=== PATIENT | male | born 1945 | race Caucasian/White ===

== ENCOUNTER → 2021-12-13 10:50 | Outpatient (BNVA) | payer OTHER, SELFPAY | PROVIDERS: PCP Internal Medicine; Visit Provider Internal Medicine Pulmonary Disease | DX: D86.0 Sarcoidosis of lung (principal); R93.89 Abnormal findings on diagnostic imaging of other specified body structures | CPT/HCPCS: 99202 ==

== ENCOUNTER 2022-01-03 13:48 | Outpatient (REF) | payer OTHER, SELFPAY ==
--- NOTE | 2022-01-03 15:18 | PFT_ITS ---
INDICATION: Dyspnea. SPIROMETRY: FEV1 to FVC of 86% with an FEV1 of 2.89 L, which is 106% predicted and FVC of 3.35 L, which is 89% predicted. No significant response to bronchodilators noted. Maximum voluntary ventilation 96% predicted. LUNG VOLUMES: Total lung capacity 82% predicted and a diffusion capacity DLCO of 72% predicted. COMPARISON: None. INTERPRETATION: No obstructive nor restrictive ventilatory defects identified. No significant response to bronchodilators noted. Normal maximum voluntary ventilation. Total lung capacity is low normal, and the patient does have a mild diffusion impairment. Clinical correlation warranted. Yovanny Fallon MD MR/MODL / [id number]
== END 2022-01-03 13:49 | disposition home or self-care (01) ==
LOC: HO.RESP 13:48
PROVIDERS: PCP Nurse Practitioner Family; Visit Provider Internal Medicine Pulmonary Disease
DX: D86.0 Sarcoidosis of lung (principal)
CPT/HCPCS: 94060; 94727; 94729

== ENCOUNTER → 2022-01-24 13:41 | Outpatient (BNVA) | payer OTHER, SELFPAY | PROVIDERS: PCP Nurse Practitioner Family; Visit Provider Internal Medicine Pulmonary Disease | DX: D86.0 Sarcoidosis of lung (principal); R93.89 Abnormal findings on diagnostic imaging of other specified body structures | CPT/HCPCS: 99212 ==

== ENCOUNTER → 2022-02-06 13:44 | Outpatient (BNVA) | payer OTHER, SELFPAY | PROVIDERS: PCP Nurse Practitioner Family; Visit Provider Internal Medicine | DX: M47.816 Spondylosis without myelopathy or radiculopathy, lumbar region (principal) | CPT/HCPCS: 99202 ==

== ENCOUNTER → 2022-03-02 13:44 | Outpatient (BNVA) | payer OTHER, SELFPAY | PROVIDERS: PCP Nurse Practitioner Family; Visit Provider Internal Medicine Pulmonary Disease | DX: D86.0 Sarcoidosis of lung (principal); R93.89 Abnormal findings on diagnostic imaging of other specified body structures | CPT/HCPCS: 99212 ==

== ENCOUNTER 2022-03-29 10:49 | Day surgery (SDC) | payer OTHER, SELFPAY ==
[2022-03-23 11:59] VITALS: BMI 23.9
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
--- NOTE | ~2022-03-29 | FL_ITS ---
EXAMINATION: XR FLUOROSCOPY WITH IMAGES CLINICAL INFORMATION: Back pain COMPARISON: CT abdomen 01/09/2019. TECHNIQUE: Fluoroscopy performed by Dr. Omar Stoll. Fluoroscopy time: 36 seconds Cumulative dose: 13.42 mGy Images: 2 FINDINGS: There are electrode needles overlying the outer left L3, L4, and L5 neural foramen. There are degenerative changes lumbar spine. FL/FL guidance in OR IMPRESSION: Fluoroscopy for pain management procedures.
[2022-03-29 11:30] VITALS: BP 137/84; PULSE 78; RESP 16; TEMP 36.3; O2SAT 97
[2022-03-29] MEDS: Lactated Ringers 1,000 ML 100 ML IVCONT (11:39)
--- NOTE | 2022-03-29 12:31 | MHC.SHP ---
Pre-Procedural Eval Section A Date of Service: 03/29/22 The patient is an INPATIENT: No The History & Physical has been completed within 30 days and I have reviewed it.: No Section B Chief Complaint: lumbar spondylosis Relevant Family History (Specify if Yes): No Relevant Social History: None Present Medications: see Short Stay Collaborative assessment Medical History: Significant History Allergies: Allergies Allergy/AdvReac Type Severity Reaction Status Date / Time amlodipine Allergy Unknown Headache Verified 03/23/22 11:58 buprenorphine [From Belbuca] Allergy Unknown Rash Verified 03/23/22 11:58 cyclobenzaprine Allergy Unknown Unknown Verified 03/23/22 11:58 gabapentin Allergy Unknown Dizziness Verified 03/23/22 11:58 mirtazapine Allergy Unknown Unknown Verified 03/23/22 11:58 trazodone Allergy Unknown Unknown Verified 03/23/22 11:58 lisinopril AdvReac Cough Verified 03/23/22 11:58 Review of Systems Sugical H&P ROS: Negative: Constitution, Cardiovascular and Respiratory and Yes, Specify: Musculoskeletal and Integumentary (forearm bruising) Exam Surgical H&P Exam: Normal: HEENT, Normal: Heart and Normal: Lungs Plan Diagnosis/Plan: Unchanged I have reviewed the history and physical and performed a pertinent physical examination on my patient. No changes have occurred unless specified.
--- NOTE | 2022-03-29 12:32 | P.BOP_ITS ---
Brief Operative Note Date of Service: 03/29/22 Pre-op diagnosis: Lumbar spondylosis Post-op diagnosis: same Procedure: Lumbar 3/4/5 medial branch radiofrequency ablation, left Surgeon: Omar Stoll MD Anesthesia: MAC Was an Sales Audit Clerk used for this Procedure?: No Estimated blood loss (mL): 2 Pathology: none sent Condition: stable Disposition: PACU
--- NOTE | 2022-03-29 12:33 | W.PM.OPN ---
Operative Note Operative Note Date of Service: 03/29/22 Narrative: Radiofrequency lesioning medial branch nerves, Left L3, L4 medial branches and L5 dorsal ramus (L4/5 and L5/S1) (2 levels, 3 nerves) After obtaining written consent, pre-procedure blood pressure and heart rate were stable and recorded in the nursing record. Standard monitors were applied. The patient was placed in the prone position and sedated by the collision technician. The lumbar area was prepped with chloraprep and draped in sterile fashion. The skin over the target for each medial branch nerve was anesthetized with 0.5% lidocaine. An 18 gauge radiofrequency cannula was advanced to each target site under fluoroscopic guidance. No paresthesias were elicited with needle placement and aspiration was negative for heme and CSF. Impedences were verified under 600 ohms. Sensory testing (50 Hz) and then motor testing (2 Hz) confirmed needle placement at each site within the appropriate voltage thresholds. Each site was injected with 0.5 ml 2% preservative-free lidocaine. Radiofrequency lesioning was performed for 90 seconds at 80 deg Celcius. Each site was then injected with 0.5ml 2% lidocaine. The needle was removed, skin cleansed and a sterile bandage was applied. The patient tolerated the procedure well and no complications were encountered. Following the procedure the patient was woken up and brought to the PACU, where his vital signs were stable. The patient was discharged home in good condition with post-procedural instructions. Time Out: Immediately prior to the procedure, the following was verbally confirmed that there is a signed consent form and that the correct patient, planned procedure, site and side are consistent with documentation and that necessary equipment and/or blood products are available prior to the start of the case. Complications: none EBL: <5 cc
[2022-03-29 13:30] VITALS: BP 96/53; PULSE 66; RESP 16; TEMP 36.2; O2SAT 94
[2022-03-29 13:45] VITALS: BP 121/77; PULSE 61; RESP 16; TEMP 36.1; O2SAT 98
[2022-03-29 14:00] VITALS: BP 124/58; PULSE 63; RESP 18; TEMP 36.1; O2SAT 98
== END 2022-03-29 14:40 | disposition home or self-care (01) ==
PROVIDERS: PCP Family Medicine; Visit Provider Internal Medicine
PROC: (CPT 64635; principal; 2022-03-29 12:30)
DX: M47.816 Spondylosis without myelopathy or radiculopathy, lumbar region (principal); G89.29 Other chronic pain; M54.50 Low back pain, unspecified; Z79.899 Other long term (current) drug therapy; Z88.0 Allergy status to penicillin; Z88.8 Allergy status to other drugs, medicaments and biological substances
CPT/HCPCS: 64635; 64636; J2250; J3010

== ENCOUNTER → 2022-05-01 08:26 | Outpatient (BNVA) | payer OTHER, SELFPAY | PROVIDERS: PCP Family Medicine; Visit Provider Internal Medicine | DX: M48.062 Spinal stenosis, lumbar region with neurogenic claudication (principal); M47.816 Spondylosis without myelopathy or radiculopathy, lumbar region | CPT/HCPCS: 99212 ==

== ENCOUNTER → 2022-05-22 08:08 | Outpatient (BNVA) | payer OTHER, SELFPAY | PROVIDERS: PCP Family Medicine; Visit Provider Internal Medicine | DX: M48.062 Spinal stenosis, lumbar region with neurogenic claudication (principal); M62.81 Muscle weakness (generalized); Z79.899 Other long term (current) drug therapy | CPT/HCPCS: 99212 ==

== ENCOUNTER → 2023-01-31 13:44 | Outpatient (BNVA) | payer OTHER, SELFPAY | PROVIDERS: PCP Internal Medicine Endocrinology, Diabetes & Metabolism; Visit Provider Neurological Surgery | DX: Z98.1 Arthrodesis status (principal) | CPT/HCPCS: 99212 ==

== ENCOUNTER 2023-03-16 08:49 | Emergency (ER) | payer OTHER, SELFPAY ==
--- NOTE | ~2023-03-16 | CT_ITS ---
EXAMINATION: CT ABDOMEN AND PELVIS WITH CONTRAST CLINICAL INFORMATION: Left flank/back pain COMPARISON: Previous CT of the abdomen December 2018 TECHNIQUE: Multidetector volumetric images were obtained from the superior aspect of the liver through the pubic symphysis following administration 85 mL of Omnipaque 350 intravenous contrast. Sagittal and coronal reformatted images were obtained on the technologist's workstation. Oral contrast: Yes This CT examination was performed using dose optimization techniques as appropriate, variously including the following: *Automated exposure control *Adjustment of mA and/or kV according to patient size (this includes techniques or standardized protocols for targeted exams where dose is matched to indication/reason for exam; i.e. extremities or head) *Use of iterative reconstruction technique DLP: 497 mGy-cm FINDINGS: LUNG BASES: The visualized lung bases are unremarkable. LIVER, GALLBLADDER, AND BILIARY TREE: The liver is slightly irregular in contour with hypertrophy of the left lobe and caudate lobe suggestive of mild cirrhotic changes. The liver is slightly low in attenuation suggestive of mild fatty infiltration. There is irregular in shape area of decreased attenuation in the inferior posterior segment of the right lobe is stable axial image 28 series 3. This is not appreciated on previous noncontrast-enhanced CT scan. The gallbladder is normal. There is no intra or extrahepatic biliary duct dilatation. No ascites. PANCREAS: There is fatty infiltration of the head of the pancreas. There is a small calcification in the head of the pancreas. The SPLEEN: Unremarkable. ADRENAL GLANDS: Unremarkable. KIDNEYS AND URETERS: Bilateral small renal cysts. No imaging follow-up recommended. The kidneys are otherwise normal. BLADDER: The prostate gland is slightly enlarged and protrudes into the base of the bladder. The bladder is otherwise normal. GASTROINTESTINAL TRACT: Question mild wall thickening of the transverse left and sigmoid colon versus changes due to underdistention. There may be prominence of the vasa recta. Appearance is questionable for mild colitis. There is mild diverticulosis. No evidence of diverticulitis. Small and large bowel is otherwise normal. The appendix is normal. ABDOMINAL WALL: No significant hernia is appreciated. LYMPH NODES: Normal. VASCULAR: Unremarkable. PELVIC VISCERA: The prostate gland is slightly enlarged measuring 4.3 x 5 cm and protrudes into the base of the bladder. OSSEOUS STRUCTURES: Postsurgical changes to the lumbar spine with posterior fusion hardware and disc prostheses L2-L5. Multilevel degenerative changes. Degenerative changes at the hip joints. Intramedullary hilaria seen in the visualized left proximal femur. CT/CT abdomen pelvis w IV con IMPRESSION: Question mild colitis. Diverticulosis. No evidence of diverticulitis. Bilateral renal cysts. No imaging follow-up recommended. Slightly enlarged prostate gland that protrudes into the base of the bladder. Cirrhotic changes of the liver and mild fatty infiltration. Question liver lesion in the inferior posterior segment of the right lobe of the liver. Follow-up liver MRI recommended. Fleischner guidelines were followed.
[2023-03-16 08:58] VITALS: BP 132/85; PULSE 73; RESP 18; TEMP 36.9; O2SAT 98; BMI 25.7
[2023-03-16 09:17] VITALS: BP 147/75; PULSE 69; RESP 16; TEMP 36.6; O2SAT 97
[2023-03-16 10:05] LABS: MANUAL DIFF FLAG NO
[2023-03-16 10:06] VITALS: BP 124/70; PULSE 64; RESP 17; O2SAT 95
[2023-03-16 10:07] LABS: Basophils Percent Auto 0.6 % (0-2); Eosinophils Absolute Auto 0.2 X10*3/uL (0.0-0.4); Eosinophils Percent Auto 3.2 % (0-4); Hematocrit 43.4 % (42.0-52.0); Hemoglobin 14.4 g/dl (14.0-18.0); Imm Gran Abs Auto 0.02 X10*3/uL (0.00-0.03); Imm Gran Pct Auto 0.4 % (0.0-0.4); Lymphocytes Absolute Auto 1.2 X10*3/uL (1.2-4.9); Mean Corpuscular HGB Conc 33.2 g/dl (31.0-36.0); Mean Corpuscular Hemoglobin 30.9 pg (27.0-33.0); Mean Corpuscular Volume 93.1 fL (80.0-98.0); Mean Platelet Volume 9.4 fL (9.4-12.4); Monocytes Absolute Auto 0.5 X10*3/uL (0.1-1.2); Monocytes Percent Auto 9.7 % (2-11); Neutrophils Absolute Auto 3.1 x10*3/uL (2.0-8.3); Neutrophils Percent Auto 62.1 % (45-73); Platelet Count 126 X10*3/uL (160-400); Red Blood Count 4.66 X10*6/uL (4.60-5.80); Red Cell Distribution Width 13.9 % (11.0-16.0)
[2023-03-16 10:18] LABS: Lactic Acid 0.8 mmol/L (0.5-2.0)
[2023-03-16 10:24] LABS: Alanine Aminotransferase 15 U/L (0-40); Albumin Level 3.9 g/dL (3.5-5.0); Alkaline Phosphatase 82 U/L (39-117); Anion Gap 10 (12-20); Aspartate Amino Transferase 24 U/L (5-37); Bilirubin Total 0.7 mg/dL (0.0-1.0); Blood Urea Nitrogen 13 mg/dL (9-16); C Reactive Protein 0.17 mg/dL (< or = 0.50); Calcium 9.4 mg/dL (8.4-10.2); Carbon Dioxide 27 mmol/L (22-29); Chloride 107 mmol/L (96-108); Creatinine Clr Calc Pharmacy 64.2; Estimated Glomerular Filt Rate > 60; Glucose Random 95 mg/dL (60-115); Magnesium 1.9 mg/dL (1.6-2.6); Potassium 3.9 mmol/L (3.3-5.1); Sodium 140 mmol/L (135-145); Total Protein 7.1 g/dL (6.5-8.0)
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
[2023-03-16] MEDS: iohexoL 350 MG/ML 100 ML INFUS..BTL IV (10:40)
[2023-03-16 10:45] LABS: Erythrocyte Sedimentation Rate 6 MM/HR (0-15)
[2023-03-16 11:16] LABS: Appearance Urine Clear; Color Urine Yellow; Glucose Urine UA Negative (Negative); Leukocyte Esterase Urine Negative (Negative); Nitrite Urine Negative (Negative); PH 5.5 (5.0-9.0); Specific Gravity - Urine >= 1.030 (1.005-1.025); Urine Blood Negative (Negative); Urine Ketones Negative (Negative); Urine Protein Negative (Neg-Trace)
--- NOTE | 2023-03-16 11:20 | PC.NURSE ---
pt a&o x4, calm and cooperative. reports lower back pain at the incision site of where he had a spinal fusion in 09/21. pt refused tylenol stating that his doctor advised he avoid it due to having a bad liver . pt sts he can tolerate his pain now and will take his prescription oxycodone when he gets home. pt resting quietly on stretcher in no apparent distress. rr even unlabored. wctm
== END 2023-03-16 12:25 | disposition home or self-care (01) ==
PROVIDERS: Physician Assistant; Emergency Provider Emergency Medicine; PCP Nurse Practitioner Family
DX: L03.312 Cellulitis of back [any part except buttock and flank] (principal); R10.9 Unspecified abdominal pain; N40.0 Benign prostatic hyperplasia without lower urinary tract symptoms; M54.50 Low back pain, unspecified; K76.9 Liver disease, unspecified; Z79.899 Other long term (current) drug therapy
CPT/HCPCS: 36415; 74177; 80053; 81003; 82550; 83605; 83735; 85025; 85652; 86140; 87040; 99284; Q9967

== ENCOUNTER 2023-04-12 12:56 | Outpatient (AMB) | payer OTHER, SELFPAY ==
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
== END 2023-04-12 13:38 | disposition home or self-care (01) ==
PROVIDERS: PCP Nurse Practitioner Family; Visit Provider Urology
DX: N40.0 Benign prostatic hyperplasia without lower urinary tract symptoms (principal)
CPT/HCPCS: 99203

== ENCOUNTER → 2023-04-12 12:56 | Outpatient (BNVA) | payer OTHER, SELFPAY | PROVIDERS: PCP Nurse Practitioner Family; Visit Provider Urology | DX: N40.0 Benign prostatic hyperplasia without lower urinary tract symptoms (principal) | CPT/HCPCS: 51798; 99202 ==

== ENCOUNTER 2023-04-18 08:22 | Outpatient (REF) | payer OTHER, SELFPAY ==
[2023-04-18 10:20] LABS: Prostate Specific Antigen 2.53 ng/mL (<0.05-4.0)
== END 2023-04-18 08:23 | disposition home or self-care (01) ==
LOC: HO.10HDL 08:22
PROVIDERS: Visit Provider Urology
DX: N40.1 Benign prostatic hyperplasia with lower urinary tract symptoms (principal); Z12.5 Encounter for screening for malignant neoplasm of prostate
CPT/HCPCS: 36415; 84153

== ENCOUNTER 2023-04-25 13:38 | Outpatient (REF) | payer OTHER, SELFPAY ==
--- NOTE | ~2023-04-25 | MR_ITS ---
EXAMINATION: MR ABDOMEN WITHOUT AND WITH CONTRAST CLINICAL INFORMATION: Liver lesion COMPARISON: CT abdomen pelvis 03/16/2023 TECHNIQUE: MRI of the abdomen before and after the IV administration of 7 mL of Gadavist was obtained using routine sequences. FINDINGS: LUNG BASES: The visualized lung bases are unremarkable. KIDNEYS AND URETERS: Bosniak 1 benign-appearing bilateral renal cysts, no imaging follow-up recommended. GALLBLADDER: Unremarkable. LIVER AND BILIARY TREE: Macrolobulated contour of the liver which be seen in the setting of cirrhosis. Wedge-shaped region of hypoenhancement in hepatic segment 6 peripherally appreciated on only one of the postcontrast sequences without definite T1 correlate given the transient nature of the finding favored to reflect a geographic region of altered perfusion. PANCREAS: 3 mm cyst in the pancreatic tail, 4:15. No solid components or pancreatic duct dilatation. SPLEEN: Unremarkable ADRENAL GLANDS: Unremarkable GASTROINTESTINAL TRACT: Colonic diverticulosis without evidence of diverticulitis. Small hiatal hernia. LYMPH NODES: No lymphadenopathy. VASCULAR: Unremarkable ABDOMINAL WALL: Unremarkable. OSSEOUS STRUCTURES: Levoconvex curvature of the lumbar spine. Status post L2-L5 posterior spinal fusion. MR/MR abdomen wo/w con IMPRESSION: 1. Wedge-shaped region of hypoenhancement in hepatic segment 6 peripherally appreciated on only one of the postcontrast sequences without definite T1 correlate given the transient nature of the finding favored to reflect a geographic region of altered perfusion, however given background of cirrhosis recommend 3 to six-month follow-up MR to ensure stability. 2. Macrolobulated contour of the liver which be seen in the setting of cirrhosis. 3. A 3 mm cyst in the pancreatic tail possibly a small side branch IPMN. Recommend two-year follow-up contrast enhanced MR/MRCP.
== END 2023-04-25 13:39 | disposition home or self-care (01) ==
LOC: HO.MRI 13:38
PROVIDERS: PCP Nurse Practitioner Family; Visit Provider Nurse Practitioner Family
DX: R93.2 Abnormal findings on diagnostic imaging of liver and biliary tract (principal)
CPT/HCPCS: 74183; A9585

== ENCOUNTER 2023-05-02 11:02 | Outpatient (AMB) | payer OTHER, SELFPAY ==
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
[2023-05-02 11:26] VITALS: BP 139/72; PULSE 77; BMI 26.9
== END 2023-05-02 12:10 | disposition home or self-care (01) ==
PROVIDERS: PCP Nurse Practitioner Family; Visit Provider Nurse Practitioner Family
DX: Z86.19 Personal history of other infectious and parasitic diseases (principal); K76.0 Fatty (change of) liver, not elsewhere classified
CPT/HCPCS: 99204

== ENCOUNTER → 2023-05-02 11:02 | Outpatient (BNVA) | payer OTHER, SELFPAY | PROVIDERS: PCP Nurse Practitioner Family; Visit Provider Nurse Practitioner Family | DX: K76.0 Fatty (change of) liver, not elsewhere classified (principal); Z86.19 Personal history of other infectious and parasitic diseases | CPT/HCPCS: 99202 ==

== ENCOUNTER 2023-05-03 08:00 | Outpatient (REF) | payer OTHER, SELFPAY ==
[2023-05-03 09:27] LABS: Prothrombin Time 11.6 SEC (11.1-13.3)
[2023-05-03 09:41] LABS: C Reactive Protein < 0.04 mg/dL (< or = 0.50)
[2023-05-03 09:59] LABS: Ferritin 88 ng/mL (20-250)
[2023-05-03 10:32] LABS: HBS Num1 12.87 mIU/mL (0-7.99); HBc Num1 0.12 S/CO (0.00-0.79); HBsAGNum1 0.32 S/CO (0.00-0.99); HIV AB/AG Nonreactive (Nonreactive); HIV Num 1 0.05 S/CO (0.00-0.99); Hepatitis B Core Antibody Nonreactive (Nonreactive); Hepatitis B Surface Antigen Negative (Negative); ~HepC Num1 13.89 S/CO (0.00-0.79); ~Hepatitis A Antibody IgM Nonreactive (Nonreactive); ~Hepatitis B Surface Antibody REACTIVE (Nonreactive); ~Hepatitis C Antibody Reactive (Nonreactive)
[2023-05-07 12:49] LABS: Alpha Fetoprotein 4.7 ng/mL (<6.1)
[2023-05-07 16:19] LABS: Ceruloplasmin 23 mg/dL (18-36)
[2023-05-07 23:09] LABS: Smooth Muscle Antibody <20 U (<20)
[2023-05-08 17:53] LABS: HCV Log PCR <1.18 NOT DETECTED Log IU/mL (NOT DETECTED); HepC Viral Load <15 NOT DETECTED IU/mL (NOT DETECTED)
[2023-05-09 16:03] LABS: Mitochondrial Antibodies NEGATIVE (NEGATIVE)
[2023-05-10 15:29] LABS: FIB-ALT 16 U/L (9-46); FIB-Alpha-2-Macroglobulin 424 mg/dL (106-279); FIB-Apolipoprotein A1 167 mg/dL (94-176); FIB-GGT 13 U/L (3-70); FIB-Haptoglobin 85 mg/dL (43-212); FIB-Total Bilirubin 0.7 mg/dL (0.2-1.2); Liver Fibrosis Score 0.69; Liver Fibrosis Stage F3; Nec Inflam Act Grade A0
[2023-05-10 23:04] LABS: Liver Kidney Microsomal Ab <=20.0 U (<=20.0)
== END 2023-05-03 08:01 | disposition home or self-care (01) ==
LOC: HO.LAB 08:00
PROVIDERS: PCP Internal Medicine Endocrinology, Diabetes & Metabolism; Visit Provider Nurse Practitioner Family
DX: Z11.4 Encounter for screening for human immunodeficiency virus [HIV] (principal); R79.89 Other specified abnormal findings of blood chemistry; Z86.19 Personal history of other infectious and parasitic diseases; K76.0 Fatty (change of) liver, not elsewhere classified; R74.01 Elevation of levels of liver transaminase levels
CPT/HCPCS: 36415; 81596; 82105; 82390; 82728; 85610; 86015; 86140; 86255; 86256; 86376; 86704; 86706; 86709; 86803; 87340; 87389; 87522

== ENCOUNTER 2023-05-08 09:52 | Outpatient (REF) | payer OTHER, SELFPAY ==
--- NOTE | ~2023-05-08 | MR_ITS ---
EXAMINATION: MR LUMBAR SPINE WITHOUT AND WITH CONTRAST CLINICAL INFORMATION: Neurogenic claudication. Left lower extremity pain with standing and walking. COMPARISON: CT abdomen and pelvis 03/16/2023. TECHNIQUE: Multiplanar MR imaging of the lumbar spine was performed without and with contrast. A total of 7 mL Gadavist was utilized for this examination. FINDINGS: There is transitional spinal anatomy. For the purposes of this dictation a normal convention of 5 lumbar vertebral be utilized with the T12 ribs being hypoplastic or absent. There are chronic postoperative changes of a posterior spinal fusion. Transpedicular hardware extends from L2 to L5. Alignment is normal. Vertebral heights are preserved. There is loss of intervertebral disc height and T2 signal intensity at multiple levels related to disc degeneration. The tip of the conus medullaris is located at T12. No mass effect on the conus. Visualized distal cord signal intensity is normal. At T12-L1 there is a slightly bulging disc. No canal stenosis. No mass effect on the traversing or foraminal nerve roots. At L1-L2 there is a diffusely bulging disc. Bilateral facet degenerative change. Moderate canal stenosis. No mass effect on the traversing or foraminal nerve roots. At L2-L3 there is no canal or neuroforaminal compromise. At L3-L4 there is no canal stenosis. Mild to moderate residual mass effect on the right L3 foraminal nerve root. At L4-L5 there is moderate residual canal stenosis. No foraminal nerve root compression. At L5-S1 there is a central to the right subarticular protrusion superimposed upon a bulging disc. Bilateral facet degenerative change. No canal stenosis. Subarticular zone narrowing causes displacement and likely compression of both traversing S1 nerve roots. Moderate compression of the right L5 foraminal nerve root. Limited visualization of the retroperitoneal anatomy reveals a well marginated benign-appearing cystic lesion at the lower pole left kidney. Psoas and paraspinal muscle groups are symmetric. MR/MR lumbar spine wo/w con IMPRESSION: There is transitional spinal anatomy. For the purposes of this dictation a normal convention of 5 lumbar vertebral be utilized with the T12 ribs being hypoplastic or absent. There are chronic postoperative changes of a spinal fusion with transpedicular hardware extending from L2 to L5. There is junctional spondylosis above the fusion with moderate canal stenosis at L1-L2. There is also moderate residual canal stenosis at the level of L4-L5. A central to the right subarticular protrusion superimposed upon a bulging disc at L5-S1 causes displacement and likely compression of both traversing S1 nerve roots. There is also moderate compression of the right L5 foraminal nerve root at this level.
== END 2023-05-08 09:53 | disposition home or self-care (01) ==
LOC: HO.MRI 09:52
PROVIDERS: PCP Nurse Practitioner Family; Visit Provider Physician Assistant
DX: M48.062 Spinal stenosis, lumbar region with neurogenic claudication (principal)
CPT/HCPCS: 72158; A9585

== ENCOUNTER 2023-05-16 14:23 | Outpatient (AMB) | payer OTHER, SELFPAY ==
--- NOTE | 2023-05-16 15:11 | A.SPINEOV_ITS ---
Intake Intake Visit Reasons: MRI follow up Intake Note: Mr. Silva is here today for MRI results. Billing And Quality Technician Required: No Allergies amlodipine Allergy (Unknown, Verified 05/02/23 11:25) Headache buprenorphine [From Belbuca] Allergy (Unknown, Verified 05/02/23 11:25) Rash cyclobenzaprine Allergy (Unknown, Verified 05/02/23 11:25) Unknown gabapentin Allergy (Unknown, Verified 05/02/23 11:25) Dizziness mirtazapine Allergy (Unknown, Verified 05/02/23 11:25) Unknown trazodone Allergy (Unknown, Verified 05/02/23 11:25) Unknown lisinopril Adverse Reaction (Verified 05/02/23 11:25) Cough Assessment & Plan Assessment & Plan (1) Status post lumbar and lumbosacral fusion by anterior technique: Code(s): Z98.1 - Arthrodesis status Plan Dear colleague, On 05/16/2023 I saw for final follow-up the patient Cyrus Silva. He is status post minimally invasive correction over lumbar degenerative scoliosis L2- L5. He Is doing quite well. His main complaint today is a radiating pain to his posterior thigh when he lays down. He tells me that he was offered a left knee replacement and L1 during that his disturbed gait is a part of the problem causing the now right-sided posterior thigh pain. The left side is much better than his previous visit. I reviewed a new MRI of the lumbar spine that shows a moderate stenosis L4-5 but overall good alignment of the spine and satisfactory position of the instrumentation. I told patient that no additional surgery is required. He will visit me on a p.r.n. basis. Thank you for the referral. Danish Tracy MD, PhD Spine Fellowship Trained Neurosurgeon Director, [facility] Coding Level of Care Code Est Pt Level 3 (05557) Diagnoses Status post lumbar and lumbosacral fusion by anterior technique Z98.1
== END 2023-05-16 15:23 | disposition home or self-care (01) ==
PROVIDERS: PCP Internal Medicine Endocrinology, Diabetes & Metabolism; Visit Provider Neurological Surgery
DX: Z98.1 Arthrodesis status (principal)
CPT/HCPCS: 99213

== ENCOUNTER → 2023-05-16 14:23 | Outpatient (BNVA) | payer OTHER, SELFPAY | PROVIDERS: Visit Provider Neurological Surgery | DX: Z98.1 Arthrodesis status (principal) | CPT/HCPCS: 99212 ==

== ENCOUNTER 2023-06-29 10:10 | Outpatient (AMB) | payer OTHER, SELFPAY ==
[2023-06-29 10:11] VITALS: BP 140/90; PULSE 107; O2SAT 98; BMI 26.0
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
== END 2023-06-29 10:24 | disposition home or self-care (01) ==
PROVIDERS: PCP Internal Medicine Endocrinology, Diabetes & Metabolism; Visit Provider Internal Medicine Pulmonary Disease
DX: D86.0 Sarcoidosis of lung (principal); R93.89 Abnormal findings on diagnostic imaging of other specified body structures
CPT/HCPCS: 99214

== ENCOUNTER → 2023-06-29 10:10 | Outpatient (BNVA) | payer OTHER, SELFPAY | PROVIDERS: PCP Internal Medicine Endocrinology, Diabetes & Metabolism; Visit Provider Internal Medicine Pulmonary Disease | DX: D86.0 Sarcoidosis of lung (principal); R93.89 Abnormal findings on diagnostic imaging of other specified body structures | CPT/HCPCS: 99212 ==

== ENCOUNTER 2023-07-02 08:45 | Outpatient (REF) | payer OTHER, SELFPAY ==
[2023-07-02 11:32] LABS: Prostate Specific Antigen 3.24 ng/mL (<0.05-4.0)
== END 2023-07-02 08:46 | disposition home or self-care (01) ==
LOC: HO.10HDL 08:45
PROVIDERS: Visit Provider Urology
DX: N40.1 Benign prostatic hyperplasia with lower urinary tract symptoms (principal); Z12.5 Encounter for screening for malignant neoplasm of prostate
CPT/HCPCS: 36415; 84153

== ENCOUNTER 2023-07-10 07:55 | Outpatient (AMB) | payer OTHER, SELFPAY ==
[2023-07-10 08:15] VITALS: BP 135/77; PULSE 62; BMI 22.8
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
== END 2023-07-10 09:15 | disposition home or self-care (01) ==
PROVIDERS: PCP Nurse Practitioner Family; Visit Provider Nurse Practitioner Family
DX: Z86.19 Personal history of other infectious and parasitic diseases (principal); K76.0 Fatty (change of) liver, not elsewhere classified
CPT/HCPCS: 99213

== ENCOUNTER → 2023-07-10 07:55 | Outpatient (BNVA) | payer OTHER, SELFPAY | PROVIDERS: PCP Nurse Practitioner Family; Visit Provider Nurse Practitioner Family | DX: K76.0 Fatty (change of) liver, not elsewhere classified (principal); Z86.19 Personal history of other infectious and parasitic diseases | CPT/HCPCS: 99212 ==

== ENCOUNTER 2023-07-12 10:03 | Outpatient (AMB) | payer OTHER, SELFPAY ==
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
== END 2023-07-12 11:27 | disposition home or self-care (01) ==
PROVIDERS: PCP Nurse Practitioner Family; Visit Provider Urology
DX: R35.1 Nocturia (principal); N40.0 Benign prostatic hyperplasia without lower urinary tract symptoms
CPT/HCPCS: 99213

== ENCOUNTER → 2023-07-12 10:03 | Outpatient (BNVA) | payer OTHER, SELFPAY | PROVIDERS: PCP Nurse Practitioner Family; Visit Provider Urology | DX: N40.1 Benign prostatic hyperplasia with lower urinary tract symptoms (principal); R35.1 Nocturia | CPT/HCPCS: 51798; 99212 ==

== ENCOUNTER 2024-04-30 14:20 | Outpatient (REF) | payer OTHER, SELFPAY ==
--- NOTE | ~2024-04-30 | XR_ITS ---
EXAMINATION: XR LUMBOSACRAL SPINE WITH OBLIQUES CLINICAL INFORMATION: Arthrodesis status. COMPARISON: MR lumbar spine 05/08/2023. TECHNIQUE: 4 views of the lumbar spine inclusive of flexion and extension views. FINDINGS: Transitional spine anatomy was characterized on MR lumbar spine of 05/08/2023. As per report for MRI lumbar spine of 05/08/2023 recommendation, for the purposes of this report, a normal convention of 5 lumbar vertebrae will again be utilized with the T12 ribs being hypoplastic or absent. Redemonstration of spinal fusion with transpedicular hardware spanning L2-L5. Disc spacers at L2-L3, L3-L4, and L4-L5. Levoscoliosis of the thoracolumbar spine. Straightening of the normal lumbar lordosis. Advanced degenerative changes with spondylosis and loss of disc space height, most notable at L2-L3 and L5-S1. Alignment maintained on flexion and extension views. XR/XR lumbar spine 4V min IMPRESSION: 1. Redemonstration of spinal fusion with transpedicular hardware spanning L2-L5. 2. Advanced degenerative changes with spondylosis and loss of disc space height, most notable at L2-L3 and L5-S1.
== END 2024-04-30 14:21 | disposition home or self-care (01) ==
LOC: HO.HOSX 14:20
PROVIDERS: PCP Nurse Practitioner Family; Visit Provider Neurological Surgery
DX: M54.50 Low back pain, unspecified (principal); M48.07 Spinal stenosis, lumbosacral region; Z98.1 Arthrodesis status
CPT/HCPCS: 72110; 99212

== ENCOUNTER 2024-04-30 14:20 | Outpatient (AMB) | payer OTHER, SELFPAY ==
--- NOTE | 2024-04-30 14:24 | A.SPINEOV_ITS ---
Intake Visit Reasons: ongoing low back pain Intake Note: Mr. Silva is here today c/o ongoing low back pain. Healthcare Sales Representative Required: No Allergies amlodipine Allergy (Unknown, Verified 07/10/23 08:19) Headache buprenorphine [From Belbuca] Allergy (Unknown, Verified 07/10/23 08:19) Rash cyclobenzaprine Allergy (Unknown, Verified 07/10/23 08:19) Unknown gabapentin Allergy (Unknown, Verified 07/10/23 08:19) Dizziness mirtazapine Allergy (Unknown, Verified 07/10/23 08:19) Unknown trazodone Allergy (Unknown, Verified 07/10/23 08:19) Unknown lisinopril Adverse Reaction (Verified 07/10/23 08:19) Cough Assessment & Plan Assessment & Plan (1) Status post lumbar and lumbosacral fusion by anterior technique: Code(s): Z98.1 - Arthrodesis status Category: Surgical (2) 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 He is status post minimally invasive L2-L5 fusion. He responded well to the surgery. He returns to my clinic with progressive symptoms of back pain that come with walking and standing. He denies radiation down his legs. On review of the MRI there is L4- 5 moderate spinal stenosis. A standing x-ray today shows good position of the interbody devices and instrumentation. I explained to the patient that his symptoms are most likely coming from this spinal stenosis but we also know from experience that back pain only has no predictable response to surgery. He states that his symptoms on unbearable and that he is willing to undergo a decompression to see you will alleviate his back pain. He is scheduled for the end of June. He will get preoperative clearance from his primary care physician. I spent 25 minutes in his consult to review imaging, and discussed plan of care. 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
== END 2024-04-30 15:27 | disposition home or self-care (01) ==
PROVIDERS: PCP Nurse Practitioner Family; Visit Provider Neurological Surgery
DX: Z98.1 Arthrodesis status (principal); M48.07 Spinal stenosis, lumbosacral region
CPT/HCPCS: 99213

== ENCOUNTER 2024-06-10 07:12 | Outpatient (REF) | payer OTHER, SELFPAY ==
--- NOTE | ~2024-06-10 | CT_ITS ---
EXAMINATION: CT CHEST WITHOUT CONTRAST CLINICAL INFORMATION: Sarcoidosis of lung COMPARISON: Chest radiograph 01/09/2019 TECHNIQUE: Multidetector volumetric CT imaging of the chest was done. Axial MIP volume rendering provided. Sagittal and coronal reformatted images were obtained. This CT examination was performed using dose optimization techniques as appropriate, variously including the following: *Automated exposure control *Adjustment of mA and/or kV according to patient size (this includes techniques or standardized protocols for targeted exams where dose is matched to indication/reason for exam; i.e. extremities or head) *Use of iterative reconstruction technique DLP: 155 mGy-cm FINDINGS: LUNGS: Central airways are patent. No focal consolidation. Linear atelectasis in the lingula. Cystic lucency in the right middle lobe. 0.3 cm nodule in the anterior left upper lobe, 8:43. MEDIASTINUM: Heart is normal in size. No pericardial effusion. The thoracic aorta is nonaneurysmal. Calcified plaque involving the aortic arch. The main pulmonary trunk is normal in caliber. Few subcentimeter in short axis mediastinal lymph nodes which are not pathologic by size criteria. Evaluation of hilar regions is limited in the absence of intravenous contrast, however there is no bulky hilar lymphadenopathy. CORONARY ARTERY CALCIFICATION: No significant coronary artery calcifications. PLEURA: There is no pleural effusion. AXILLA: No lymphadenopathy. UPPER ABDOMEN: Small hiatal hernia. Few colonic diverticuli. Partially visualized bilateral simple renal cortical cysts, for which no dedicated follow-up imaging is required. OSSEOUS STRUCTURES: Diffuse decrease in osseous mineralization. Multilevel degenerative changes of the visualized spine. Partially visualized postsurgical changes related to posterior lumbar fusion. CT/CT chest wo IV con IMPRESSION: No definite findings to suggest sarcoidosis. 0.3 cm nodule in the anterior left upper lobe which is nonspecific.According to the 2017 Fleischner Society criteria for incidentally found pulmonary nodules of this size and appearance, <6 mm (solid): in a low risk patient (minimal or no smoking or other known risk factors for malignancy), no follow-up is needed, while in a high risk patient (history of smoking or other known risk factors), consider optional CT follow-up at 12 months. Small hiatal hernia. Few colonic diverticuli. Electronically signed by: Pratik De Dios MD 06/19/2024 08:55 AM EDT
== END 2024-06-10 07:13 | disposition home or self-care (01) ==
LOC: HO.CT 07:12
PROVIDERS: PCP Nurse Practitioner Family; Visit Provider Internal Medicine Pulmonary Disease
DX: D86.0 Sarcoidosis of lung (principal)
CPT/HCPCS: 71250

== ENCOUNTER 2024-07-03 07:15 | Day surgery (SDC) | payer OTHER, SELFPAY ==
[2024-06-12 12:23] VITALS: BP 130/77; PULSE 68; RESP 18; O2SAT 97; BMI 26.9
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
[2024-07-03] VITALS (8 sets, daily range): BP systolic 119–169; BP diastolic 67–91; PULSE 50–60; RESP 12–18; TEMP 36.2–36.7; O2SAT 95–98; BMI 26.6
--- NOTE | ~2024-07-03 | FL_ITS ---
EXAMINATION: FLUOROSCOPY GUIDANCE FOR NEEDLE PLACEMENT CLINICAL INFORMATION: L4-5 decompression COMPARISON: None available. TECHNIQUE: Intraoperative lumbar spine imaging FINDINGS: Single image identifying the L4-L5 level FLUOROSCOPY TIME: 2.2 seconds DOSE AREA PRODUCT: 0.3372 Gy-cm2 (damon-centimeter squared) FL/FL guidance in OR IMPRESSION: Fluoroscopy in the operating room. Please see operative report for additional information. Electronically signed by: Evelyne Sandoval MD 07/19/2024 04:48 PM EDT
[2024-07-03] MEDS: Lactated Ringers 1,000 ML 100 ML IVCONT (08:07)
[2024-07-03] MEDS: methocarbamoL 750 MG TABLET PO (08:35)
--- NOTE | 2024-07-03 08:39 | MHC.SHP ---
Pre-Procedural Eval Section A - 24 Hr Update-Section A only Date of Service: 07/03/24 The patient is an INPATIENT: No Section B - Complete if H&P > 30 days Chief Complaint: arthrodesis status,spinal stenosis,lumbosacral Allergies: Allergies Allergy/AdvReac Type Severity Reaction Status Date / Time amlodipine Allergy Intermediate Headache Verified 07/03/24 07:51 buprenorphine [From Belbuca] Allergy Intermediate given as Verified 07/03/24 07:51 pain Rx-pain clinic-severe facial rash cyclobenzaprine Allergy Intermediate foggy Verified 07/03/24 07:51 feeling gabapentin Allergy Intermediate Dizziness Verified 07/03/24 07:51 mirtazapine Allergy Intermediate foggy Verified 07/03/24 07:51 feeling trazodone Allergy Intermediate foggy Verified 07/03/24 07:51 feeling acetaminophen AdvReac Intermediate hx Verified 07/03/24 07:51 Hepatitis-cannot take tylenol lisinopril AdvReac Intermediate Cough Verified 07/03/24 07:51 Review of Systems Sugical H&P ROS: Negative: Constitution, Cardiovascular, Respiratory, Neurological, Psychiatric, Hem-Onc, Allergic/Immunologic, Gastrointestinal, Genitourinary, Musculoskeletal, Integumentary, Endocrine and Eyes/Ears/Nose/Throat Exam Surgical H&P Exam: Normal: HEENT, Normal: Heart, Normal: Lungs, Normal: Extremities, Normal: Abdomen and Normal: Neurological (Awake, alert) and Significant Findings: Skin (Healed scar over left knee) Plan Diagnosis/Plan: Unchanged I have reviewed the history and physical and performed a pertinent physical examination on my patient. No changes have occurred unless specified. L4-5 decompression Time Spent With Patient Time: Total time managing care of this patient today _5___ minutes.
--- NOTE | 2024-07-03 10:28 | P.OP_ITS ---
Operative Note Operative Note Date of Service: 07/03/24 Narrative: Preoperative Diagnosis: L4-5 spinal stenosis/lateral recess stenosis/neural foraminal stenosis Operation: L4-5 Laminotomy, Partial facetectomy and foraminotomy with use of microscope Consent Informed Consent was obtained for this operation. I have explained the nature, purpose and benefits of the operation. I have discussed the risks and benefit of the operation including possible complications or adverse events with patient/family. Alternative(s) were discussed with the patient with their relative benefits and risks as well as the consequences of not accepting the operation were included in obtaining consent. Surgeon: TONIA IBARRA MD, PHD Procedure Assisted By: Cyrus Gates Description of Procedure This patient is suffering from neurogenic claudication back pain. The patient was offered a L4-5 decompression for spinal stenosis. The procedure complications were explained. The patient was consented. The patient was brought to the operating room and endotracheally intubated. The patient was turned in prone position on the [place] frame. Prep and drape was done followed by timeout. The Physician hotel assistant general manager provided access. A mid lumbar incision was made followed by release of the paravertebral muscle on the left side to expose the L4-5 lamina and facet joints. An intraoperative x-ray was obtained to confirm the correct level. The microscope was brought in. I took over the procedure. The high-speed drill was used to do a left L4-5 laminotomy until flavum ligament was reached. A #2 Kerrison was used to expand the laminotomy near flush to the pedicles and to include a partial facetectomy. The flavum ligament was opened and resected with a #3 Kerrison to decompress the underlying thecal sac. The flavum ligament was removed to decompress the lateral recess and the exiting L5 nerve root. The patient was turned contralaterally. The spinous process was undercut and then the contralateral side was decompressed by removing flavum from the contralateral lateral recess. A long nerve hook could be easily passed along the medial side of the pedicles as a sign of adequate decompression. The microscope was removed. Hemostasis was done. The physician hotel assistant general manager close the Incision in 2 layers. Steri-Strips were used to approximate incision. An OpSite with Tegaderm was used to cover the incision. All sponge needle counts were correct. Patient was extubated and transported in stable is to recovery room. Anesthesia: General Estimated Blood Loss (ml): 25 Complications: None Duration of Surgery: Under 60 Minutes Postoperative Plan: Discharge to home
--- NOTE | 2024-07-03 10:36 | PM.DS ---
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: Status: Acute DS: Summary Time Attestation Discharge Coordination Time (in mins): 5 Quality: Safe Use of Opioids Does Pt have an Active Cancer Diagnosis on the Problem List?: No Quality: Stroke Does the patient have a stroke diagnosis?: No Physical Exam Vital Signs: Vital Signs: Last Vital Signs Temp 98.1 F 07/03/24 08:25 Pulse 60 07/03/24 08:25 Resp 18 07/03/24 08:25 BP 119/67 07/03/24 08:25 Pulse Ox 96 07/03/24 08:25 O2 Del Method Room Air 07/03/24 08:25 BMI result Body Mass Index 26.6 Discharge Plan Discharge Patient Disposition: Home, Self-Care Referrals: Arnulfo Hernandez NP [Primary Care Provider] - 1 Week Discharge Medications: Continued multivitamin Tablet 1 tab PO DAILY diclofenac sodium [Arthritis Pain (diclofenac)] 1 % gel 2 g topical QID Rx Instructions: apply to single elbow, wrist or hand; for hand includes palm/fingers/back of hand ibuprofen 400 mg tablet 400 mg PO TID lidocaine 5 % adhesive patch,medicated 1 patch topical DAILY Rx Instructions: leave on most painful area for up to 12 hrs melatonin 5 mg capsule 5 mg PO NEEDED oxycodone 5 mg capsule 10 mg PO TID PRN (Reason: Pain) sennosides [Evac-U-Gen (sennosides)] 8.6 mg tablet 8.6 mg PO BEDTIME fluoride (sodium) 1.1 % paste 1 appl dental BEDTIME methocarbamol 500 mg tablet 1,000 mg PO Q8H PRN (Reason: Pain) tamsulosin 0.4 mg capsule 0.4 mg PO BEDTIME Discharge Orders: Discharge Order (Routine); Ordered 07/03/24 Ordered By: Cyrus Hagan Diet: Advance to usual diet Activity on Discharge: As tolerated Activity Restrictions/Additional Instructions: After your spinal surgery we ask you to observe the following restrictions/guidelines: Activity: It is normal to feel some discomfort as you increase your activity, but that will improve with time. We ask you avoid heavy lifting or acitivities that cause pain. As a general rule, 8lbs is a safe limit for lifting right after surgery. Walk as much as you feel comfortable but not to exhaustion. You will feel extra tired the first few days after surgery. Stay well hydrated. It is OK to walk up and down stairs You may return to driving when you are off narcotics (such as vicodin, oxycodone, dilaudid, etc), and you are back to normal functional capacity. If you have any concerns please check with office before driving. Return to work is specific to each patient and each surgery, so please speak with your doctor/PA at first follow up. Please bring paperwork such as FMLA at that time if you need it filled out. Medications: You were recently prescribed a prescription for oxycodone, therefore we will not be prescribing any narcotics in addition to this. You must use up the oxycodone that you have at home and you can get a refill from the prescriber who feels that for you if needed. For optimum pain control, it is best to start with a combination of 500 mg of Tylenol every 4 hours with 600 mg of Motrin every 8 hours, and use narcotics as needed in between for breakthrough pain. We will give you a short supply of narcotics after surgery (usually one weeks worth). If you need more please call the office but do not use more than prescribed. You will need to give our office 48 hours notice if you need narcotics refilled and we do not fill narcotics on weekends or evenings. If you are on a narcotic, it is a good idea to take a stool softener such as colace or senna to avoid constipation If you take blood thinner such as aspirin, Plavix, Coumadin, Effient, Eliquis etc for conditions such as Afib, DVT, Pulmonary embolus, coronary disease, stents etc please speak with your surgeon about specific details as to when you can resume these medications. You can resume NSAIDs on post op day 1 (eg: Motrin, Naproxen, etc). Follow up: Please call the office, , after surgery to arrange a 3 week follow up for wound check. Wound Care: You may remove your dressing on the first day after surgery. ?You may ?leave open to air. Please do not remove the steri strips underneath. they will fall off on their own in one week. IT IS NORMAL FOR THE WOUND TO OOZE OR BE BLOODY FOR A FEW DAYS AFTER SURGERY. ?IF THIS HAPPENS JUST PLACE NEW DRESSING OVER IT TO AVOID STAINING CLOTHES. You may shower on post op day # 1 We ask that you do not let the water soak the wound. If it does get wet, just towel dry lightly. Please do not scrub your incision or place any type of chemical/ointment on the wound. No tub baths, pools or jacuzzis for one month. If you have any leaking or redness from your wound, or fevers, please call office Print Language: [place]
[2024-07-03] MEDS: fentaNYL citrate/PF 100 MCG/2 ML VIAL 25 MCG IVPUSH (10:53)
== END 2024-07-03 11:49 | disposition home or self-care (01) ==
PROVIDERS: PCP Nurse Practitioner Family; Visit Provider Neurological Surgery
PROC: (CPT 63047; principal; 2024-07-03 10:30)
DX: M48.07 Spinal stenosis, lumbosacral region (principal); M54.50 Low back pain, unspecified; Z98.1 Arthrodesis status; Z88.8 Allergy status to other drugs, medicaments and biological substances
CPT/HCPCS: 63047; J0690; J1100; J1885; J2003; J2405; J2704; J3010

== ENCOUNTER → 2024-07-03 07:15 | Outpatient (BNV) | payer OTHER, SELFPAY | PROVIDERS: PCP Nurse Practitioner Family; Visit Provider Neurological Surgery | DX: M48.07 Spinal stenosis, lumbosacral region (principal) | CPT/HCPCS: 63047; 99499 ==

== ENCOUNTER 2024-07-19 15:32 | Emergency (ER) | payer OTHER, SELFPAY ==
--- NOTE | ~2024-07-19 | US_ITS ---
EXAMINATION: US TRIPLEX LOWER EXTREMITY, RIGHT CLINICAL INFORMATION: Calf pain and swelling COMPARISON: None available. TECHNIQUE: Color-flow triplex imaging with spectral analysis and compression Doppler were performed on the right lower extremity. FINDINGS: Respiratory variation, normal compression and augmented flow are noted throughout the right lower extremity. The visualized common femoral vein, superficial femoral vein, profunda femoral vein, popliteal vein and midcalf peroneal and posterior tibial venous segments show no evidence of deep venous thrombosis. There is no Herrera's cyst. US/US venous duplex LE RT IMPRESSION: No evidence of deep venous thrombosis involving the right lower extremity. Electronically signed by: Evelyne Sandoval MD 07/19/2024 08:36 PM EDT
--- NOTE | ~2024-07-19 | XR_ITS ---
EXAMINATION: XR KNEE, RIGHT CLINICAL INFORMATION: Pain, swelling COMPARISON: None available. TECHNIQUE: Four views of the right knee. FINDINGS: Mild joint effusion. No acute fracture. Alignment is anatomic. Joint spaces are maintained. No abnormal soft tissue calcification. XR/XR knee RT 4V IMPRESSION: Mild joint effusion. Electronically signed by: Evelyne Sandoval MD 07/19/2024 04:47 PM EDT RP
[2024-07-19 15:41] VITALS: BP 141/64; PULSE 75; RESP 18; TEMP 36.3; O2SAT 97; BMI 23.5
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
[2024-07-19 21:11] VITALS: BP 144/81; PULSE 74; RESP 18; TEMP 36.6; O2SAT 98
--- NOTE | 2024-07-19 21:12 | MHC.EDTECH ---
This tech applied an doc wrap to pts right knee,per providers request,patient tolerated well,RN aware
[2024-07-19 21:15] VITALS: BP 144/81; PULSE 74; RESP 18; TEMP 36.6; O2SAT 98
== END 2024-07-19 21:16 | disposition home or self-care (01) ==
PROVIDERS: Emergency Provider Emergency Medicine; PCP Nurse Practitioner Family
DX: M79.661 Pain in right lower leg (principal); M25.461 Effusion, right knee; I10 Essential (primary) hypertension; Z79.899 Other long term (current) drug therapy
CPT/HCPCS: 73564; 93971; 99283; 99284

== ENCOUNTER 2024-07-24 09:56 | Outpatient (AMB) | payer OTHER, SELFPAY ==
--- NOTE | 2024-07-24 10:01 | A.SPINEOV_ITS ---
Intake Visit Reasons: 1st post op Intake Note: Mr. Silva is here today for his 1st post-op appointment. Clinical Lab Specialist Required: No Allergies amlodipine Allergy (Intermediate, Verified 07/19/24 15:44) Headache buprenorphine [From Belbuca] Allergy (Intermediate, Verified 07/19/24 15:44) given as pain Rx-pain clinic-severe facial rash cyclobenzaprine Allergy (Intermediate, Verified 07/19/24 15:44) foggy feeling gabapentin Allergy (Intermediate, Verified 07/19/24 15:44) Dizziness mirtazapine Allergy (Intermediate, Verified 07/19/24 15:44) foggy feeling trazodone Allergy (Intermediate, Verified 07/19/24 15:44) foggy feeling acetaminophen Adverse Reaction (Intermediate, Verified 07/19/24 15:44) hx Hepatitis-cannot take tylenol lisinopril Adverse Reaction (Intermediate, Verified 07/19/24 15:44) Cough Assessment & Plan Assessment & Plan (1) Lumbosacral stenosis without neurogenic claudication: Code(s): M48.07 - Spinal stenosis, lumbosacral region Category: Medical Plan Procedure: L4-5 laminotomy Cyrus comes in today for his 1st postoperative visit. Tramaine is a very pleasant veitman . To recap he had a minimally invasive correction of his degenerative scoliosis on 09/21/2022. He continued to report burning sensation on left side of his back that can go into his left leg. He states that he feels much better since his surgery and had good resolution of his leg pain and left radiculopathy. He still has some numbness in his left thigh but does not report concerns regarding this. He states he overall feels much better than he did prior to surgery and is very happy with the procedure. Cyrus's posterior incision site appears closed and well healed. He continues to ambulate with his cane. Cyrus is doing very well since his surgery. He has multiple other health concerns he is dealing with at this time (needs right knee replacement, has been in discussion with doctors from [place] regarding removal of a metal nail from his left femur which he sustained as an injury while in [place]). Therefore, I told Cyrus he may follow up with us on an as needed basis. Cliff Tracy MD,PhD [facility] Coding Level of Care Code Global (98730) Diagnoses Lumbosacral stenosis without neurogenic claudication M48.07
== END 2024-07-24 10:40 | disposition home or self-care (01) ==
PROVIDERS: PCP Nurse Practitioner Family; Visit Provider Physician Assistant
DX: M48.07 Spinal stenosis, lumbosacral region (principal)
CPT/HCPCS: 99024

== ENCOUNTER → 2024-07-24 09:56 | Outpatient (BNVA) | payer OTHER, SELFPAY | PROVIDERS: PCP Nurse Practitioner Family; Visit Provider Physician Assistant | DX: M48.07 Spinal stenosis, lumbosacral region (principal); Z47.89 Encounter for other orthopedic aftercare; Z98.890 Other specified postprocedural states | CPT/HCPCS: 99212 ==